=== PATIENT | male | born 1990 | race Caucasian/White ===

== ENCOUNTER 2021-09-16 00:15 | Emergency (ER) | payer BC ==
[~2021-09-16] VITALS: Ht 180.3 cm; Wt 110.0 kg
[~2021-09-16 00:15] MED LIST: NAPR-683 PO; ONDA4TAB7 PO; OXYC1TAB19 PO; TAMS0.4C97 PO
--- NOTE | 2021-09-16 00:35 | PHYS DOC ---
Past Medical History Past Medical History: Asthma, Kidney Stone Past Surgical History: No Surgical History Smoking Status: Current Every Day Smoker Alcohol Use: Occasionally Drug Use: None General Adult EDM: Chief Complaint: SHORTNESS OF BREATH HPI: HPI: Patient is a 31 year old male without pertinent past medical history who presents with chest pain. Chest pain began at 11:30 PM, while resting. Somewhat sudden onset it is substernal and in the upper belly. Radiates through to the back. Sharp. Slightly worse with deep inspiration. No recent surgeries, immobilizations. No history of DVT. No lower extremity swelling. No hemoptysis. No trauma. No hx of similar episodes. Last ate at ~7. Not post-prandial. Drinks etoh only occasionally. Not a heavy drinker. Review of Systems: Review of Systems: Constitutional: Denies fever or chills. [] Eyes: Denies change in visual acuity. [] HENT: Denies nasal congestion or sore throat. [] Respiratory: Reports SOB Cardiovascular: Reports chest pain GI: Reports upper abdominal pain. Denies nausea, vomiting, bloody stools or diarrhea. [] : Denies dysuria. [] Musculoskeletal: Denies back pain or joint pain. [] Integument: Denies rash. [] Neurologic: Denies headache, focal weakness or sensory changes. [] Endocrine: Denies polyuria or polydipsia. [] Lymphatic: Denies swollen glands. [] Psychiatric: Denies depression or anxiety. [] Heart Score: C/O Chest Pain: Yes HEART Score for Chest Pain: HEART Score for Chest Pain Response (Comments) Value History Slighlty/Non-Suspicious 0 ECG Normal 0 Age < 45 0 Risk Factors No Risk Factors 0 Total 0 Risk Factors: Risk Factors: None Risk Scores: Score 0 - 3: 2.5% MACE over next 6 weeks - Discharge Home Allergies: Allergies: Allergies Coded Allergies Type Severity Reaction Last Updated Verified No Known Drug Allergies 05/09/16 No Physical Exam: PE: Constitutional: Patient appears uncomfortable mild tachypnea, clutching chest. Neck: Trachea midline. Normal range of motion, no tenderness, supple, no st ridor. [] Cardiovascular:Heart rate regular rhythm, no murmur [] Lungs & Thorax: Breath sounds clear bilaterally. No crackles or wheezes. Abdomen: Epigastric and RUQ tenderness to palpation. Negative muprhy's. Soft. No rebound. Slight involuntary guarding with palpation of epigastrium. Skin: Warm, dry, no erythema, no rash. [] Back: No tenderness, no CVA tenderness. [] Extremities: No tenderness, no cyanosis, no clubbing, ROM intact, no edema. [] Neurologic: Alert and oriented X 3, normal motor function, normal sensory function, no focal deficits noted. [] Psychologic: Anxious mood and affect EKG: EKG: Sinus tachycardia. Rate 107. Normal axis. Normal intervals. No ST elevation, depression, T wave inversion, or Q waves. [] Radiology/Procedures: Radiology/Procedures: [] Impression: [facility] [address] [place] [address] IMAGING REPORT Signed PATIENT: MARIA INES RICARDO ACCOUNT: [id number] : 1990 LOCATION: ER AGE: 31 SEX: M EXAM STATUS: REG ER ORD. PHYSICIAN: IRVING GOMEZ MD REASON: RUQ pain, elevated LFT's PROCEDURE: ABDOMEN LTD INDICATION : Reason: RUQ pain, elevated LFT's / Spl. Instructions: / History: COMPARISON: April 2016 CT TECHNIQUE: Multiple ultrasound images obtained through the abdomen in grayscale and color. FINDINGS: Pancreas: No gross abnormality identified in visualized portions of pancreas. Only partially seen Liver: Echogenic and prominent in size portions not well seen secondary to poor beam penetration through the echogenic liver. Gallbladder: Definite gallstone is not seen. Wall is mildly prominent measuring up to about 3-4 mm. IVC: Partially distended at level of liver. Common Bile Duct: Not dilated. Right Kidney: No hydronephrosis. IMPRESSION: * Liver is echogenic. Nonspecific but can be seen with fatty infiltration. Electronically signed by: Loren Braga MD (09/16/2021 2:10 AM) [id number] DICTATED and SIGNED BY: LOREN BRAGA MD DATE: 09/16/21 [id number] [facility] [address] [place] [address] IMAGING REPORT Signed PATIENT: MARIA INES RICARDO ACCOUNT: [id number] : 1990 LOCATION: ER AGE: 31 SEX: M EXAM STATUS: REG ER ORD. PHYSICIAN: IRVING GOMEZ MD REASON: RUQ/epig.pain,lft's 400s,elev.alk phos,no definite stone on US.MSQR471,75ML PROCEDURE: CT ABD PELV W/ IV CONTRST ONLY INDICATION: Reason: RUQ/epig.pain,lft's 400s,elev.alk phos,no definite stone on US.GRET554,75ML / Spl. Instructions: / History: COMPARISON: April 2016 TECHNIQUE: Axial CT images were obtained through the abdomen and pelvis with intravenous contrast. One or more of the following individualized dose reduction techniques were utilized for this examination: 1. Automated exposure control; 2. Adjustment of the mA and/or kV according to patient size; 3. Use of iterative reconstruction technique. FINDINGS: Vascular: No abdominal aortic aneurysm. Hepatobiliary: Liver is low density which can be seen with fatty infiltration. Liver is prominent in size. Pancreas: No peripancreatic edema. Spleen: Spleen is prominent in size. Renal/Bladder: Nonobstructive left renal stones greater than right with the largest measuring 4 mm on the left. Urinary bladder is distended. No hydronephrosis. Gastrointestinal: No periappendiceal inflammatory changes. No dilated loops of bowel to suggest obstruction. There is a couple of prominent loops of small bowel the left-sided the abdomen but no high-grade transition point to suggest significant obstruction. Mild degenerative changes of the spine. IMPRESSION: * Liver is low density. This can be seen with fatty infiltration. * Nonobstructive renal stones without hydronephrosis. Urinary bladder is distended at time of exam. * No evidence of appendicitis Electronically signed by: Loren Braga MD (09/16/2021 4:01 AM) [id number] DICTATED and SIGNED BY: LOREN BRAGA MD DATE: 09/16/21 [id number] 0 Course & Med Decision Making: Course & Med Decision Making Pertinent Labs and Imaging studies reviewed. (See chart for details) Patient 31-year-old male presents with sudden onset epigastric and lower chest pain. On arrival is afebrile, tachycardic to the 110s, BP 149/88, SPO2 99. Breath sounds clear bilaterally, less likely pneumothorax. No evidence of tension pneumo. Consider PE. D-dimer ordered. No evidence of ischemia on EKG. Also consider upper abdominal pathologies such as peptic ulcer disease, biliary colic, pancreatitis, choledocholithiasis. Will obtain LFTs, lipase, CXR for initial work-up. Pulses 2+ in all extremities, and patient is a healthy 31 yo, unlikely aortic dissection. 0034 LFTs (AST>ALT) and alk phos elevated. Lipase and bili normal. Non-obstructive pattern. RUQ US with echogenic liver, GB wall is mildly thickened 3-4 mm, no definite stone seen. Given clinical presentation and LFTs -- Concerned for early cholecystitis or occult cholelithiasis. Will obtain CT abd/pelvis for further evaluation. 0241 CT without acute process. Redemonstrates fatty infiltration of liver. Will send acute hepatitis viral panel. Will attempt p.o. challenge at this time. On re-eval his pain is now minimal and nausea is better controlled. Patient voiced understanding that he will need to follow up with his PCP this week for reevaluation and represent to the ED for recurrent severe pain, fever/chills, inability to stay hydrated. [address] Disclaimer: Anthony Disclaimer: This electronic medical record was generated, in whole or in part, using a voice recognition dictation system. Departure Departure Impression: Primary Impression: Transaminitis Additional Impressions: RUQ pain Fatty liver Disposition: HOME / SELF CARE / HOMELESS Condition: STABLE Referrals: RITCHIE GARCIA MD (PCP) Call Dr. Garcia's office today to schedule an appt for this week. Additional Instructions: Your liver enzymes (AST, ALT, alkaline phosphatase) were elevated. Your CT and Ultrasound showed fatty liver disease. Sometime early gallbladder issues can be missed on imaging, so if you have fever/chills or worsening pain you need to return to the ED to be seen. Otherwise, Please call Dr. Garcia's office to schedule an appointment for this week. He will likely want to recheck your liver tests and potentially do further testing. Scripts Ondansetron Hcl (ZOFRAN) 4 Mg Tablet 1 TAB PO PRN Q6-8HRS for nausea, #20 TAB 0 Refills Prov: IRVING GOMEZ MD 09/16/21 IRVING GOMEZ MD Sep 16, 2021 00:35
[2021-09-16 00:41] LABS: BASO % 0 % (0-3); EOS # 0.2 x10^3/uL (0.0-0.7); EOS % 3 % (0-3); HEMATOCRIT 46.6 % (39.0-53.0); HEMOGLOBIN 16.2 g/dL (13.0-17.5); LYMPH # 0.6 x10^3/uL (1.0-4.8); LYMPH % 7 % (24-48); MEAN CORPUSCULAR HEMOGLOBIN 33 pg (25-35); MEAN CORPUSCULAR HGB CONC 35 g/dL (31-37); MEAN CORPUSCULAR VOLUME 96 fL (79-100); MONO # 0.6 x10^3/uL (0.0-1.1); MONO % 7 % (0-9); NEUT # 7.9 x10^3/uL (1.8-7.7); NEUT % 84 % (31-73); PLATELET COUNT 156 x10^3/uL (140-400); RED BLOOD COUNT 4.84 x10^6/uL (4.30-5.70); WHITE BLOOD COUNT 9.4 x10^3/uL (4.0-11.0)
[2021-09-16 00:48] LABS: CREATININE 0.8 mg/dL (0.7-1.3); GFR 113.5; POTASSIUM 3.2 mmol/L (3.5-5.1)
[2021-09-16 00:56] LABS: ALBUMIN 3.5 g/dL (3.4-5.0); ALBUMIN/GLOBULIN RATIO 0.9 (1.0-1.7); TOTAL BILIRUBIN 0.5 mg/dL (0.2-1.0); TOTAL PROTEIN 7.2 g/dL (6.4-8.2)
--- NOTE | 2021-09-16 02:12 | RAD ---
INDICATION : Reason: RUQ pain, elevated LFT's / Spl. Instructions: / History: COMPARISON: April 2016 CT TECHNIQUE: Multiple ultrasound images obtained through the abdomen in grayscale and color. FINDINGS: Pancreas: No gross abnormality identified in visualized portions of pancreas. Only partially seen Liver: Echogenic and prominent in size portions not well seen secondary to poor beam penetration thro ugh the echogenic liver. Gallbladder: Definite gallstone is not seen. Wall is mildly prominent measuring up to about 3-4 mm. IVC: Partially distended at level of liver. Common Bile Duct: Not dilated. Right Kidney: No hydronephrosis. IMPRESSION: * Liver is echogenic. Nonspecific but can be seen with fatty infiltration. Electronically signed by: Sean De Leon MD (09/16/2021 2:10 AM) [id number]
[2021-09-16] MEDS ORDERED: CONTRAST GIVEN. MC PRN (03:00)
[2021-09-16] MEDS ORDERED: MORPHINE SULFATE 4 MG/ML INJ. ONE (03:25)
[2021-09-16] MEDS ORDERED: ONDANSETRON PF 4 MG/2 ML VIAL. ONE (03:25)
[2021-09-16] MEDS ORDERED: ONDANSETRON PF 4 MG/2 ML VIAL. IVP ONE (03:30)
[2021-09-16] MEDS ORDERED: IOHEXOL 300 MG/ML 100ML VIAL. IV ONE (03:30)
[2021-09-16] MEDS ORDERED: MORPHINE SULFATE 10 MG/ML VIAL. IVP ONE (03:30)
--- NOTE | 2021-09-16 04:03 | RAD ---
INDICATION: Reason: RUQ/epig.pain,lft's 400s,elev.alk phos,no definite stone on US.HLXX564,75ML / Spl . Instructions: / History: COMPARISON: April 2016 TECHNIQUE: Axial CT images were obtained through the abdomen and pelvis with intravenous contrast. One or more of the following individualized dose reduction techniques were utilized for this examinat ion: 1. Automated exposure control; 2. Adjustment of the mA and/or kV according to patient size; 3 . Use of iterative reconstruction technique. FINDINGS: Vascular: No abdominal aortic aneurysm. Hepatobiliary: Liver is low density which can be seen with fatty infiltration. Liver is prominent in size. Pancreas: No peripancreatic edema. Spleen: Spleen is prominent in size. Renal/Bladder: Nonobstructive left renal stones greater than right with the largest measuring 4 mm on the left. Urinary bladder is distended. No hydronephrosis. Gastrointestinal: No periappendiceal inflammatory changes. No dilated loops of bowel to suggest obstr uction. There is a couple of prominent loops of small bowel the left-sided the abdomen but no high-grade pope sition point to suggest significant obstruction. Mild degenerative changes of the spine. IMPRESSION: * Liver is low density. This can be seen with fatty infiltration. * Nonobstructive renal stones without hydronephrosis. Urinary bladder is distended at time of exam. * No evidence of appendicitis Electronically signed by: Sean De Leon MD (09/16/2021 4:01 AM) [id number]
[2021-09-16 04:30] VITALS: BP 129/79
[2021-09-16] MEDS ORDERED: ONDA4TAB7 PO (04:32)
--- NOTE | 2021-09-16 04:36 | EKG ---
[facility] [address] [place] [address] Test Date: 2021-09-16 Test Time: 00:25:37 Pat Name: MARIA INES RICARDO Department: Room: Gender: M [employer]: : 1990 Requested By: IRVING GOMEZ Order Number: [id number] Reading MD: Alexis Hermosillo Measurements Intervals [place] Rate: 107 P: 48 [place]: 140 QRS: 63 QRSD: 96 T: 36 QT: 328 QTc: 443 Interpretive Statements SINUS TACHYCARDIA Electronically Signed On 09-18-2021 12:55:07 DISH CARRIER by Alexis Hermosillo
--- NOTE | 2021-09-16 04:47 | RAD ---
INDICATION: Reason: chest pain/upper abd pain / Spl. Instructions: / History: COMPARISON: None. FINDINGS: Single view of chest obtained. Hypoexpanded examination. No definite focal airspace consolidation. Cardiac silhouette unremarkable. IMPRESSION: * No focal airspace consolidation or edema. Electronically signed by: Sean De Leno MD (09/16/2021 4:44 AM) [id number]
== END 2021-09-16 04:54 | disposition home or self-care (01) ==
LOC: ER 00:15
DX: R74.01 Elevation of levels of liver transaminase levels (principal); R10.11 Right upper quadrant pain; K76.0 Fatty (change of) liver, not elsewhere classified
CPT/HCPCS: 36415; 71045; 74177; 76705; 80053; 83690; 84484; 85025; 85379; 86705; 86709; 86803; 87340; 93005; 96374; 96375; 99285; J2270; J2405; Q9967